=== PATIENT | female | born 2000 ===

== ENCOUNTER 2025-02-27 13:50 | Outpatient (CLI) | payer BC, SELFPAY ==
--- NOTE | 2025-02-27 14:00 | CRLHL7_ITS ---
For Patients: As a result of the Century Cures Act, medical imaging exams and procedure reports are released immediately into your electronic medical record. You may view this report before your referring provider. If you have questions, please contact your health care provider. Indication: Dating and viability. Technique: Ultrasound examination of the pelvis was performed. The study was performed transabdominally and transvaginally. Grayscale imaging was provided as well as color Doppler. The transvaginal study was performed to better evaluate the contents of the gestational sac. Comparison: None Findings: A gestational sac is noted within the uterus. The average gestational sac size is 4.1 centimeters which corresponds to 9 weeks and 4 days. No yolk sac is identified. A small pole is noted. It is disproportionately small for the size of the gestational sac. [place] rump length measurement is 3 millimeters which would correspond to 6 weeks and 0 days. No cardiac activity was noted at real-time. However, based on the discrepancy of the size of the pole relative to the gestational sac, the findings are consistent with a nonviable 1st trimester intrauterine . The ovaries are normal in size. The right measures 3.1 x 2.3 x 2.0 centimeters and the left measures 3.3 x 2.0 x 2.1 centimeters. A corpus luteum cyst of is noted on the left measuring 2.0 x 1.7 x 1.8 centimeters. No free fluid in the cul-de-sac. Impression: A small pole is noted measuring 3 millimeters which corresponds to 6 weeks and 0 days. No heart motion was observed. The average gestational sac size is 4.1 centimeters corresponds to 9 weeks and 4 days. No yolk sac was observed. Based on the discrepancy between the size of the gestational sac and pole, the overall findings are consistent with a nonviable 1st trimester intrauterine . Dictated by Efe Bass MD @ 02/27/2025 2:52:09 PM (Electronically Signed)
== END 2025-02-27 13:51 | disposition home or self-care (01) ==
LOC: US 13:52
PROVIDERS: PCP Family Medicine; Visit Provider Physician Assistant
DX: O36.80X0 Pregnancy with inconclusive fetal viability, not applicable or unspecified (principal)
CPT/HCPCS: 76801; 76817

== ENCOUNTER 2025-03-06 12:54 | Outpatient (CLI) | payer BC, SELFPAY ==
--- NOTE | 2025-03-06 13:00 | CRLHL7_ITS ---
For Patients: As a result of the Century Cures Act, medical imaging exams and procedure reports are released immediately into your electronic medical record. You may view this report before your referring provider. If you have questions, please contact your health care provider. INDICATION: First trimester dating and viability. Prior ultrasound on 02/27/2025 suggestive of failed early . TECHNIQUE: Ultrasound OB pelvis transabdominal and transvaginal. Real-time bolden-scale imaging of the pelvis was performed. COMPARISON: 02/27/2025. FINDINGS: Redemonstrated is a cystic lesion within the central uterus favored to represent a gestational sac. The mean sac diameter is 3.76 centimeters, previously 3.89 centimeters. The estimated gestational age by mean sac diameter is 9 weeks and 1 day, previously 9 weeks and 2 days. A possible pole is redemonstrated with a crown-rump length measured as 0.35 centimeters, previously 0.33 centimeters. Estimated gestational age is 6 weeks and 0 days, unchanged. No heart tones are seen. No definite yolk sac is seen. A small heterogeneous fluid density is seen adjacent to the presumed gestational sac measuring 1.1 x 0.8 x 0.7 centimeters. There are no associated elements noted. This likely represents a subarachnoid hemorrhage. The cervix appears to be closed. The ovaries are identified bilaterally. Redemonstrated is an isoechoic mass with anechoic center within the left ovary measuring 1.2 x 1.6 x 1.3 centimeters, previously 2.0 x 1.7 x 1.8 centimeters. There is peripheral blood flow noted. No gross pole or yolk sac is associated. IMPRESSION: 1. Grossly unchanged size and appearance of a presumed gestational sac and pole compared to 02/27/2025. No interval growth, heart tones or yolk sac is seen. The imaging findings are evidence of failed early . 2. Interval decrease in size of an indeterminate 1.6 centimeter mass within the left ovary, favored to represent a corpus luteum. 3. Likely 1.1 centimeter subchorionic hemorrhage. Dictated by Kp Monson MD @ 03/06/2025 2:03:38 PM (Electronically Signed)
== END 2025-03-06 12:55 | disposition home or self-care (01) ==
LOC: US 12:55
PROVIDERS: PCP Family Medicine; Visit Provider Advanced Practice Midwife
DX: O36.4XX0 Maternal care for intrauterine death, not applicable or unspecified (principal); O46.8X1 Other antepartum hemorrhage, first trimester; Z3A.00 Weeks of gestation of pregnancy not specified; N83.10 Corpus luteum cyst of ovary, unspecified side
CPT/HCPCS: 76817

== ENCOUNTER 2025-03-07 11:24 | Outpatient (CLI) | payer BC, SELFPAY | END 2025-03-07 11:25 | disposition home or self-care (01) | PROVIDERS: PCP Family Medicine; Visit Provider Advanced Practice Midwife | DX: Z67.91 Unspecified blood type, Rh negative; O26.891 Other specified pregnancy related conditions, first trimester | CPT/HCPCS: 86850; 86900; 86901; J2791 ==